=== PATIENT | female | born 1965 | race Hispanic/Latino ===

== ENCOUNTER 2018-09-18 14:45 | Emergency (ER) | payer SELFPAY ==
--- NOTE | 2018-09-18 16:49 | ER ---
Nurse's Notes [facility] Name: Ester Anderson Age: 53 yrs Sex: Female : 1965 Arrival Date: 09/18/2018 Time: 14:48 Bed 26 Private MD: Diagnosis: Pelvic organ prolapse Presentation: 09/18 15:01 Presenting complaint: Patient states: "Last week I started feeling pelvic pressure, hb then when I went to the bathroom today something was protruding out, I think it is my bladder.". Transition of care: patient was not received from another setting of care. Onset of symptoms was September 18, 2018. Risk Assessment: Do you want to hurt yourself or someone else? Patient reports no desire to harm self or others. Care prior to arrival: None. 15:01 Method Of Arrival: Ambulatory hb 15:01 Acuity: NATALEE 3 hb 16:55 Initial Sepsis Screen: Does the patient meet any 2 criteria? No. Patient's initial mg2 sepsis screen is negative. Does the patient have a suspected source of infection? No. Patient's initial sepsis screen is negative. 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 - Social history:: Smoking status: Patient/guardian denies using tobacco. - Ebola Screening: : No symptoms or risks identified at this time. Screenin:22 Abuse screen: Denies threats or abuse. Denies injuries from another. Nutritional mg2 screening: No deficits noted. Tuberculosis screening: No symptoms or risk factors identified. Fall Risk None identified. Assessment: 16:53 General: Appears in no apparent distress. comfortable, Behavior is calm, cooperative. mg2 Pain: Complains of pain in back Pain does not radiate. Pain currently is 2 out of 10 on a pain scale. Quality of pain is described as pressure, Pain began gradually, 1 week ago Is intermittent. Neuro: Level of Consciousness is awake, alert, obeys commands, Oriented to person, place, time, situation. Cardiovascular: Capillary refill < 3 seconds Patient's skin is warm and dry. Respiratory: Airway is patent Respiratory effort is even, unlabored, Respiratory pattern is regular, symmetrical. GI: No signs and/or symptoms were reported involving the gastrointestinal system. : Genitalia appear normal. : Reports vaginal pressure/bladder prolapse. EENT: No signs and/or symptoms were reported regarding the EENT system. Derm: No signs and/or symptoms reported regarding the dermatologic system. Musculoskeletal: Circulation, motion, and sensation intact. Capillary refill < 3 seconds. Vital Signs: 15:02 BP 121 / 71; Pulse 75; Resp 16; Temp 97.8; Pulse Ox 100% on R/A; Weight 76.2 kg; Height hb 5 ft. 1 in. (154.94 cm); Pain 5/10; 16:56 BP 117 / 77; Pulse 80; Resp 18; Pulse Ox 100% on R/A; Pain 2/10; mg2 15:02 Body Mass Index 31.74 (76.20 kg, 154.94 cm) hb ED Course: 14:48 Patient arrived in ED. mr 15:02 Triage completed. hb 15:03 Arm band placed on. hb 16:22 Chay Christianson RN is Primary Nurse. mg2 16:26 Jez Brower NP is PHCP. pm1 16:26 Khris Mckinney MD is Attending Physician. pm1 16:47 Candace Kramer MD is Referral Physician. pm1 16:55 Patient has correct armband on for positive identification. mg2 16:55 Assist provider with pelvic exam: Performed by Jez Brower NP Patient tolerated mg2 well. Patient did not have IV access during this emergency room visit. Administered Medications: No medications were administered Outcome: 16:48 Discharge ordered by MD. pm1 17:04 Discharged to home ambulatory. mg2 17:04 Condition: stable 17:04 Discharge instructions given to patient, Instructed on discharge instructions, follow up and referral plans. Demonstrated understanding of instructions, follow-up care. 17:04 Patient left the ED. mg2 Signatures: Natalia Hart Jez Brower NP [employer] TEACHER pm1 Maritza Mattson RN RN Chay Christianson RN RN [facility]
--- NOTE | 2018-09-18 16:49 | EDPHYS ---
Physician Documentation [facility] Name: Ester Anderson Age: 53 yrs Sex: Female : 1965 Arrival Date: 09/18/2018 Time: 14:48 Bed 26 Private MD: ED Physician Khris Mckinney HPI: 09/18 16:37 This 53 yrs old Female presents to ER via Ambulatory with complaints of Pelvic pm1 Problem. 16:37 The patient presents with A ball came out of the vagina. Onset: The symptoms/episode pm1 began/occurred 1 week(s) ago. Modifying factors: The symptoms are alleviated by Patient self reduces the ball with her finger. Patient reduced it prior to arrival to the ER today. Associated signs and symptoms: Pertinent negatives: diarrhea, dysuria, fever, nausea, vaginal bleeding, vaginal discharge, vomiting. Severity of symptoms: in the emergency department the symptoms have resolved, and did so earlier today. The patient has not experienced similar symptoms in the past. The patient has not recently seen a physician, Sees Dr. Quinones in [place]. Patient with onset of vagina ball coming in and out of her vagina onset 1 week ago. She was urinating and felt some pressure. The next day she felt a ball and she reduced the ball with her finger without difficulty. She reduced it prior to arrival to the ER today. 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 - Social history:: Smoking status: Patient/guardian denies using tobacco. - Ebola Screening: : No symptoms or risks identified at this time. ROS: 16:37 Negative for urinary symptoms, burning with urination, difficulty urinating, bladder pm1 incontinence, vaginal bleeding, vaginal discharge. 16:37 Constitutional: Negative for fever, chills, and weight loss, Eyes: Negative for injury, pain, redness, and discharge, ENT: Negative for injury, pain, and discharge, Neck: Negative for injury, pain, and swelling, Cardiovascular: Negative for chest pain, palpitations, and edema, Respiratory: Negative for shortness of breath, cough, wheezing, and pleuritic chest pain, Abdomen/GI: Negative for abdominal pain, nausea, vomiting, diarrhea, and constipation, Back: Negative for injury and pain, MS/Extremity: Negative for injury and deformity, Skin: Negative for injury, rash, and discoloration. 16:37 Neuro: Negative for headache, weakness, numbness, tingling, and seizure. Exam: 16:37 Constitutional: This is a well developed, well nourished patient who is awake, alert, pm1 and in no acute distress. Head/Face: Normocephalic, atraumatic. Neck: Trachea midline, no thyromegaly or masses palpated, and no cervical lymphadenopathy. Supple, full range of motion without nuchal rigidity, or vertebral point tenderness. No Meningismus. Chest/axilla: Normal chest wall appearance and motion. Nontender with no deformity. No lesions are appreciated. Cardiovascular: Regular rate and rhythm with a normal S1 and S2. No gallops, murmurs, or rubs. Normal PMI, no JVD. No pulse deficits. Respiratory: Lungs have equal breath sounds bilaterally, clear to auscultation and percussion. No rales, rhonchi or wheezes noted. No increased work of breathing, no retractions or nasal flaring. Abdomen/GI: Soft, non-tender, with normal bowel sounds. No distension or tympany. No guarding or rebound. No evidence of tenderness throughout. Back: No spinal tenderness. No costovertebral tenderness. Full range of motion. 16:37 Skin: Warm, dry with normal turgor. Normal color with no rashes, no lesions, and no evidence of cellulitis. MS/ Extremity: Pulses equal, no cyanosis. Neurovascular intact. Full, normal range of motion. 16:37 : Pelvic Exam: External exam: is normal, no appreciated Bartholin's cyst, no erythema, not excoriated, no evidence of foreign body, no lesions, no ulcerations, no warts seen, bimanual exam reveals normal findings, No mass or tenderness present, discharge, is not appreciated, Chay QUINONES. 16:37 Neuro: Orientation: is normal, Motor: is normal, Gait: is steady, at a normal pace, without difficulty. Vital Signs: 15:02 BP 121 / 71; Pulse 75; Resp 16; Temp 97.8; Pulse Ox 100% on R/A; Weight 76.2 kg; Height hb 5 ft. 1 in. (154.94 cm); Pain 5/10; 16:56 BP 117 / 77; Pulse 80; Resp 18; Pulse Ox 100% on R/A; Pain 2/10; mg2 15:02 Body Mass Index 31.74 (76.20 kg, 154.94 cm) hb MDM: 16:30 Patient medically screened. pm1 16:37 Data reviewed: vital signs. Data interpreted: Pulse oximetry: on room air is 100 %. pm1 Interpretation: normal. Counseling: I had a detailed discussion with the patient and/or guardian regarding: the historical points, exam findings, and any diagnostic results supporting the discharge/admit diagnosis, the need for outpatient follow up, for definitive care, Gynecological surgeon, to return to the emergency department if symptoms worsen or persist or if there are any questions or concerns that arise at home. Administered Medications: No medications were administered Disposition: 09/18/18 16:48 Discharged to Home. Impression: Pelvic organ prolapse. - Condition is Stable. - Discharge Instructions: Pelvic Organ Prolapse. - Medication Reconciliation Form, Thank You Letter, Prescription Opioid Use form. - Follow up: Emergency Department; When: As needed; Reason: Worsening of condition. Follow up: Candace Kramer MD; When: 2 - 3 days; Reason: Recheck today's complaints, Continuance of care, Re-evaluation by your physician. - Problem is new. - Symptoms have improved. Addendum: 09/21/2018 07:05 Co-signature as Attending Physician, Khris Mckinney MD I agree with the assessment and k dr plan of care. Signatures: Khris Mckinney MD MD [facility] Jez Brower NP DIRECTOR TRANSITION pm1 Maritza Mattson, RN RN Chay Christianson, STACIE RN mg2 Corrections: (The following items were deleted from the chart) 09/18 16:49 16:48 09/18/2018 16:48 Discharged to Home. Impression: Cystocele, unspecified - pm1 possible. Condition is Stable. Forms are Medication Reconciliation Form, Thank You Letter, Antibiotic Education, Prescription Opioid Use. Follow up: Emergency Department; When: As needed; Reason: Worsening of condition. Follow up: Candace Kramer; When: 2 - 3 days; Reason: Recheck today's complaints, Continuance of care, Re-evaluation by your physician. Problem is new. Symptoms have improved. pm1 17:04 16:49 09/18/2018 16:48 Discharged to Home. Impression: Pelvic organ prolapse. Condition mg2 is Stable. Discharge Instructions: Pelvic Organ Prolapse. Forms are Medication Reconciliation Form, Thank You Letter, Antibiotic Education, Prescription Opioid Use. Follow up: Emergency Department; When: As needed; Reason: Worsening of condition. Follow up: Candace Kramer; When: 2 - 3 days; Reason: Recheck today's complaints, Continuance of care, Re-evaluation by your physician. Problem is new. Symptoms have improved. pm1
== END 2018-09-18 17:04 | disposition home or self-care (01) ==
LOC: ER 14:45
DX: N81.10 Cystocele, unspecified (principal)
CPT/HCPCS: 99283